=== PATIENT | female | born 2000 | race Caucasian/White ===

== ENCOUNTER 2018-06-24 18:52 | Emergency (ER) | payer MEDICAID ==
[~2018-06-24] VITALS: Ht 162.6 cm; Wt 55.1 kg
[2018-06-24 19:45] LABS: CULTURE INDICATED? YES; MICROSCOPIC INDICATED
[2018-06-24 21:22] VITALS: BP 94/61
== END 2018-06-24 21:58 | disposition home or self-care (01) ==
LOC: ED 21:46
DX: G89.29 Other chronic pain (principal); R10.84 Generalized abdominal pain; F17.210 Nicotine dependence, cigarettes, uncomplicated
CPT/HCPCS: 36415; 74021; 81001; 84702; 87086; 99285